=== PATIENT | male | born 1995 | race Two or more races ===

== ENCOUNTER 2018-08-05 01:33 | Emergency (ER) | payer OTHER ==
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
[2018-08-05 01:38] VITALS: BP 128/76
[2018-08-05] MEDS ORDERED: IBUPROFEN 600 MG TAB PO ONE (01:55)
[2018-08-05] MEDS ORDERED: CYCLOBENZAPRINE HCL 10 MG TAB PO ONE (01:55)
[2018-08-05] MEDS ORDERED: CYCL10TA29 PO (01:57)
[2018-08-05] MEDS ORDERED: IBUP600T22 PO (01:57)
== END 2018-08-05 02:00 | disposition home or self-care (01) ==
LOC: ER 01:39
DX: S13.9XXA Sprain of joints and ligaments of unspecified parts of neck, initial encounter (principal); M54.5 Low back pain; V40.5XXA Car driver injured in collision with pedestrian or animal in traffic accident, initial encounter
CPT/HCPCS: 99283